=== PATIENT | male | born 1960 | race Caucasian/White ===

== ENCOUNTER 2017-10-09 17:51 | Inpatient (IN) | payer MEDICARE, MEDICAID ==
[~2017-10-09] VITALS: Ht 165.1 cm; Wt 110.9 kg
[~2017-10-09 17:51] MED LIST: AMIT10TA6 PO; ASCO100T4 PO; CALC600T2 PO; DOCU250C14 PO; GABA-529 PO; GUAR205P PO; IBAN2.5T PO; LEVE500T53 PO; LORA10CA PO; OMEP20 PO; RISP1 PO; SENN-175 PO; TAMS0.4C32 GT
[2017-10-09 18:11] LABS: HEMATOCRIT 44.7 % (41-53); HEMOGLOBIN 14.4 g/dL (13.5-17.5); MEAN CORPUSCULAR HEMOGLOBIN 26.1 pg (26.0-34.0); MEAN CORPUSCULAR HGB CONC 32.2 G/dL (31.0-37.0); MEAN CORPUSCULAR VOLUME 81 fL (80-100); PLATELET COUNT (AUTO) 447 K/uL (150-450); RED BLOOD CELL COUNT(AUTO) 5.53 MIL/uL (4.50-5.90); RED CELL DISTRIBUTION WIDTH 14.9 % (11.5-14.5)
[2017-10-09 18:22] LABS: ANION GAP 2 mmol/L (8-16); CALCIUM, TOTAL 8.6 mg/dL (8.8-10.5); CARBON DIOXIDE 34 mmol/L (22-29); CHLORIDE 89 mmol/L (98-107); CREATININE 0.72 mg/dL (0.60-1.30); GLOMERULAR FILTR. RATE CALC > 60 mL/min (>60); POTASSIUM 5.4 mmol/L (3.5-5.1); SODIUM SERUM 125 mmol/L (136-145); UREA NITROGEN, BLOOD 20 mg/dL (7-18)
[2017-10-09 18:24] LABS: PROTHROMBIN TIME 10.7 SEC (9.4-11.6)
[2017-10-09 18:29] LABS: ALANINE AMINOTRANSFERASE 27 U/L (12-78); ALBUMIN 2.7 g/dL (3.4-5.0); ASPARTATE AMINOTRANSFERASE 21 U/L (15-37); BILIRUBIN,TOTAL 0.4 mg/dL (0.1-1.0); CREATINE KINASE, TOTAL 66 U/L (39-308)
[2017-10-09 18:37] LABS: BAND NEUTROPHILS % (MANUAL) 7 % (1-5); LYMPHOCYTES % (MANUAL) 2 % (22-44); RBC MORPHOLOGY COMMENT NORMAL RBC MORPH; TOTAL CELLS COUNTED 100
[2017-10-09 18:38] LABS: B-TYPE NATRIURETIC PEPTIDE 256 pg/mL (0-100)
[2017-10-09] MEDS ORDERED: AZITHROMYCIN 500 MG/NS 250 ML IV ONE (19:45)
[2017-10-09] MEDS ORDERED: 0.9% SODIUM CHLORIDE 10 ML SYRINGE IVP PRN ×2 (19:45→22:30)
[2017-10-09] MEDS ORDERED: ALBUTEROL SULFATE 2.5 MG/0.5 ML NEB SOLUTION NEB ONE (19:45)
[2017-10-09] MEDS ORDERED: ACETAMINOPHEN 325 MG TABLET PO PRN ×2 (19:45→22:30)
[2017-10-09] MEDS ORDERED: SODIUM CHLORIDE 0.9% 1,000 ML IV ONE (19:45)
[2017-10-09] MEDS ORDERED: IPRATROPIUM BROMIDE 0.5 MG/2.5 ML NEB SOLUTION NEB ONE (19:45)
[2017-10-09] MEDS ORDERED: CefTRIAXone 1 GM/DEXTROSE 50 ML IV ONE (19:45)
[2017-10-09 22:13] VITALS: BP 106/65
[2017-10-09] MEDS ORDERED: ONDANSETRON HCL 4 MG/2 ML VIAL IVP PRN (22:30)
[2017-10-09] MEDS ORDERED: MAGNESIUM HYDROXIDE SUSPENSION 30 ML UDCUP PO PRN (22:30)
[2017-10-09] MEDS ORDERED: IPRATROPIUM BROMIDE 0.5 MG/2.5 ML NEB SOLUTION NEB PRN (22:30)
[2017-10-09] MEDS ORDERED: BISACODYL 10 MG RECTAL RECTAL SUPPOSITORY PR PRN (22:30)
[2017-10-09] MEDS ORDERED: ALBUTEROL SULFATE 2.5 MG/0.5 ML NEB SOLUTION NEB PRN (22:30)
[2017-10-09] MEDS ORDERED: FUROSEMIDE 40 MG/4 ML VIAL IVP ONE (22:30)
[2017-10-09 22:48] LABS: ABG A-A DIFF O2 354.1 mmHg (10-20.0); ABG BASE EXCESS 5.2 mmol/L (-2.0-3.0); ABG HCO3 27.9 mmol/L (22.0-26.0); ABG OXYHEMOGLOBIN 96.5 % (94.0-100.0); ABG PCO2 56 mmHg (35-45); ABG PH 7.359 (7.35-7.450); TEMPERATURE, FAHRENHEIT, BG 98.6 FAHREN (96.0-98.6)
[2017-10-09 22:49] LABS: ALLEN TEST, BLOOD GAS Positive
[2017-10-09 22:59] LABS: PROCALCITONIN (PCT) 0.13 ng/mL (<0.50)
[2017-10-10 00:29] VITALS: BP 110/68
[2017-10-10 00:30] LABS: INFLUENZA TYPE B NEGATIVE FOR TYPE B (NEGATIVE)
[2017-10-10] MEDS ORDERED: SODIUM CHLORIDE 0.9% 500 ML IV ONE (01:55)
[2017-10-10] MEDS: PIPERACILLIN/TAZO 3.375 GM/D5W 50 ML IV SCH ×4 (02:03→21:17)
[2017-10-10] MEDS: ALBUTEROL SULFATE 2.5 MG/0.5 ML NEB SOLUTION NEB SCH ×4 (02:13→20:24)
[2017-10-10] MEDS: IPRATROPIUM BROMIDE 0.5 MG/2.5 ML NEB SOLUTION NEB SCH ×4 (02:13→20:24)
[2017-10-10 02:36] LABS: ANION GAP -1 mmol/L (8-16); CALCIUM, TOTAL 8.2 mg/dL (8.8-10.5); CARBON DIOXIDE 37 mmol/L (22-29); CHLORIDE 94 mmol/L (98-107); CREATININE 0.88 mg/dL (0.60-1.30); GLOMERULAR FILTR. RATE CALC > 60 mL/min (>60); SODIUM SERUM 130 mmol/L (136-145); UREA NITROGEN, BLOOD 27 mg/dL (7-18)
[2017-10-10 06:13] VITALS: BP 102/102
[2017-10-10 07:57] LABS: HEMATOCRIT 38.1 % (41-53); HEMOGLOBIN 12.7 g/dL (13.5-17.5); MEAN CORPUSCULAR HEMOGLOBIN 26.7 pg (26.0-34.0); MEAN CORPUSCULAR HGB CONC 33.2 G/dL (31.0-37.0); MEAN CORPUSCULAR VOLUME 80 fL (80-100); PLATELET COUNT (AUTO) 382 K/uL (150-450); RED BLOOD CELL COUNT(AUTO) 4.75 MIL/uL (4.50-5.90); WHITE BLOOD COUNT (AUTO) 16.2 K/uL (4.5-11.0)
[2017-10-10 08:33] LABS: ALANINE AMINOTRANSFERASE 21 U/L (12-78); ALBUMIN 2.2 g/dL (3.4-5.0); ANION GAP 2 mmol/L (8-16); ASPARTATE AMINOTRANSFERASE 26 U/L (15-37); BILIRUBIN,TOTAL 0.3 mg/dL (0.1-1.0); CALCIUM, TOTAL 8.2 mg/dL (8.8-10.5); CARBON DIOXIDE 33 mmol/L (22-29); CHLORIDE 93 mmol/L (98-107); CHOL/HDL RATIO 1.7 (4.2-7.3); CREATININE 0.73 mg/dL (0.60-1.30); GLOMERULAR FILTR. RATE CALC > 60 mL/min (>60); POTASSIUM 5.5 mmol/L (3.5-5.1); SODIUM SERUM 128 mmol/L (136-145); THYROID STIMULATING HORMONE 1.74 uIU/mL (0.36-3.74); TOTAL PROTEIN, SERUM 6.1 g/dL (6.4-8.2); UREA NITROGEN, BLOOD 28 mg/dL (7-18)
[2017-10-10 08:38] VITALS: BP 102/69
[2017-10-10] MEDS ORDERED: TAMSULOSIN HCL 0.4 MG CAPSULE GT SCH (09:00)
[2017-10-10] MEDS: PANTOPRAZOLE SODIUM 40 MG/VIAL IVP SCH (09:03)
[2017-10-10] MEDS: SENNA 187 MG TABLET PO SCH ×2 (09:03→21:00)
[2017-10-10] MEDS: GABAPENTIN 100 MG CAPSULE PO SCH ×3 (09:03→21:00)
[2017-10-10] MEDS: CALCIUM CARBONATE 500 MG CHEWABLE TABLET PO SCH ×2 (09:05→21:00)
[2017-10-10] MEDS: HEPARIN SODIUM,PORCINE 5,000 UNITS/ML VIAL SQ SCH ×2 (09:05→21:16)
[2017-10-10] MEDS: LevETIRAcetam 500 MG TABLET PO SCH ×2 (09:08→21:00)
[2017-10-10] MEDS: DOCUSATE SODIUM 250 MG CAPSULE PO SCH ×2 (09:09→21:00)
[2017-10-10 09:29] LABS: LYMPHOCYTES % (MANUAL) 6 % (22-44); RBC MORPHOLOGY COMMENT NORMAL RBC MORPH; TOTAL CELLS COUNTED 100
[2017-10-10 11:46] VITALS: BP 98/69
[2017-10-10] MEDS ORDERED: SODIUM POLYSTYRENE SULFONATE 15 GM/60 ML SUSPENSION BOTTLE PO ONE (12:15)
[2017-10-10] MEDS: ASPIRIN 81 MG EC TABLET PO SCH (17:45)
[2017-10-10 17:52] VITALS: BP 120/60
[2017-10-10 19:30] LABS: ANION GAP 4 mmol/L (8-16); CALCIUM, TOTAL 8.3 mg/dL (8.8-10.5); CARBON DIOXIDE 36 mmol/L (22-29); CHLORIDE 95 mmol/L (98-107); CREATININE 0.68 mg/dL (0.60-1.30); GLOMERULAR FILTR. RATE CALC > 60 mL/min (>60); POTASSIUM 4.4 mmol/L (3.5-5.1); SODIUM SERUM 135 mmol/L (136-145); UREA NITROGEN, BLOOD 29 mg/dL (7-18)
[2017-10-10 19:41] VITALS: BP 119/67
[2017-10-10] MEDS: RisperiDONE 1 MG TABLET PO SCH (21:00)
[2017-10-10] MEDS: PRAVASTATIN SODIUM 20 MG TABLET PO SCH (21:00)
[2017-10-10] MEDS: NITROGLYCERIN 2% (1 GM=INCH) PACKET TP SCH ×2 (21:17→23:37)
[2017-10-10] MEDS: FUROSEMIDE 40 MG/4 ML VIAL IVP SCH (21:17)
[2017-10-10] MEDS ORDERED: SODIUM CHLORIDE 0.9% 250 ML IV ONE (21:20)
[2017-10-10] MEDS: AZITHROMYCIN 500 MG/NS 250 ML IV SCH (22:56)
[2017-10-11 00:05] VITALS: BP 108/57
[2017-10-11] MEDS: PIPERACILLIN/TAZO 3.375 GM/D5W 50 ML IV SCH ×4 (01:18→20:39)
[2017-10-11] MEDS: IPRATROPIUM BROMIDE 0.5 MG/2.5 ML NEB SOLUTION NEB SCH ×4 (02:47→20:30)
[2017-10-11] MEDS: ALBUTEROL SULFATE 2.5 MG/0.5 ML NEB SOLUTION NEB SCH ×4 (02:47→20:30)
[2017-10-11 05:21] VITALS: BP 100/52
[2017-10-11 05:44] LABS: BASOPHILS % (AUTO) 0.2 % (0.0-2.0); EOSINOPHILS % (AUTO) 3.4 % (1.0-6.0); HEMATOCRIT 37.1 % (41-53); LYMPHOCYTES # (AUTO) 0.9 K/uL (1.0-4.8); LYMPHOCYTES % (AUTO) 6.8 % (22.0-44.0); MEAN CORPUSCULAR HEMOGLOBIN 26.3 pg (26.0-34.0); MEAN CORPUSCULAR HGB CONC 32.2 G/dL (31.0-37.0); MEAN CORPUSCULAR VOLUME 82 fL (80-100); MONOCYTES # (AUTO) 1.4 K/uL (0.1-1.0); MONOCYTES % (AUTO) 10.7 % (2.0-9.0); NEUTROPHILS # (AUTO) 10.4 K/uL (1.8-7.7); NEUTROPHILS % (AUTO) 78.9 % (40.0-70.0); PLATELET COUNT (AUTO) 344 K/uL (150-450); RED BLOOD CELL COUNT(AUTO) 4.54 MIL/uL (4.50-5.90); RED CELL DISTRIBUTION WIDTH 15.1 % (11.5-14.5); WHITE BLOOD COUNT (AUTO) 13.1 K/uL (4.5-11.0)
[2017-10-11 06:02] LABS: ALANINE AMINOTRANSFERASE 23 U/L (12-78); ALBUMIN 2.3 g/dL (3.4-5.0); ANION GAP 0 mmol/L (8-16); ASPARTATE AMINOTRANSFERASE 16 U/L (15-37); BILIRUBIN,TOTAL 0.3 mg/dL (0.1-1.0); CALCIUM, TOTAL 8.1 mg/dL (8.8-10.5); CARBON DIOXIDE 37 mmol/L (22-29); CHLORIDE 96 mmol/L (98-107); CREATININE 0.64 mg/dL (0.60-1.30); GLOMERULAR FILTR. RATE CALC > 60 mL/min (>60); POTASSIUM 4.3 mmol/L (3.5-5.1); SODIUM SERUM 133 mmol/L (136-145); TOTAL PROTEIN, SERUM 6.3 g/dL (6.4-8.2); UREA NITROGEN, BLOOD 30 mg/dL (7-18)
[2017-10-11 07:13] VITALS: BP 108/60
[2017-10-11] MEDS: PANTOPRAZOLE SODIUM 40 MG/VIAL IVP SCH (08:58)
[2017-10-11] MEDS: FUROSEMIDE 40 MG/4 ML VIAL IVP SCH ×2 (08:58→20:39)
[2017-10-11] MEDS: GABAPENTIN 100 MG CAPSULE PO SCH ×3 (08:58→20:38)
[2017-10-11] MEDS: NITROGLYCERIN 2% (1 GM=INCH) PACKET TP SCH ×2 (08:58→16:19)
[2017-10-11] MEDS: LevETIRAcetam 500 MG TABLET PO SCH ×2 (08:58→20:38)
[2017-10-11] MEDS: ASPIRIN 81 MG EC TABLET PO SCH (08:58)
[2017-10-11] MEDS: DOCUSATE SODIUM 250 MG CAPSULE PO SCH ×2 (08:58→20:38)
[2017-10-11] MEDS: SENNA 187 MG TABLET PO SCH ×2 (08:59→20:38)
[2017-10-11] MEDS: HEPARIN SODIUM,PORCINE 5,000 UNITS/ML VIAL SQ SCH ×2 (08:59→20:39)
[2017-10-11] MEDS: ASCORBIC ACID 500 MG TABLET PO SCH (08:59)
[2017-10-11] MEDS: CALCIUM CARBONATE 500 MG CHEWABLE TABLET PO SCH ×2 (08:59→20:47)
[2017-10-11 09:45] LABS: ANION GAP 1 mmol/L (8-16); CALCIUM, TOTAL 8.2 mg/dL (8.8-10.5); CARBON DIOXIDE 38 mmol/L (22-29); CHLORIDE 97 mmol/L (98-107); GLOMERULAR FILTR. RATE CALC > 60 mL/min (>60); POTASSIUM 4.3 mmol/L (3.5-5.1); SODIUM SERUM 136 mmol/L (136-145); UREA NITROGEN, BLOOD 26 mg/dL (7-18)
[2017-10-11 11:16] VITALS: BP 101/56
[2017-10-11 15:57] VITALS: BP 121/66
[2017-10-11] MEDS: RisperiDONE 1 MG TABLET PO SCH (20:38)
[2017-10-11] MEDS: PRAVASTATIN SODIUM 20 MG TABLET PO SCH (20:38)
[2017-10-11] MEDS: AZITHROMYCIN 500 MG/NS 250 ML IV SCH (20:46)
[2017-10-11 21:02] VITALS: BP 122/76
[2017-10-12 00:05] VITALS: BP 118/71
[2017-10-12] MEDS: PIPERACILLIN/TAZO 3.375 GM/D5W 50 ML IV SCH ×3 (01:31→13:45)
[2017-10-12] MEDS: NITROGLYCERIN 2% (1 GM=INCH) PACKET TP SCH ×3 (01:31→16:18)
[2017-10-12] MEDS: IPRATROPIUM BROMIDE 0.5 MG/2.5 ML NEB SOLUTION NEB SCH ×3 (02:10→14:27)
[2017-10-12] MEDS: ALBUTEROL SULFATE 2.5 MG/0.5 ML NEB SOLUTION NEB SCH ×3 (02:10→14:27)
[2017-10-12 04:28] VITALS: BP 104/61
[2017-10-12 07:01] LABS: BASOPHILS % (AUTO) 0.1 % (0.0-2.0); EOSINOPHILS % (AUTO) 7.1 % (1.0-6.0); HEMATOCRIT 36.7 % (41-53); HEMOGLOBIN 11.7 g/dL (13.5-17.5); LYMPHOCYTES # (AUTO) 0.9 K/uL (1.0-4.8); LYMPHOCYTES % (AUTO) 8.6 % (22.0-44.0); MEAN CORPUSCULAR HEMOGLOBIN 26.3 pg (26.0-34.0); MEAN CORPUSCULAR HGB CONC 31.8 G/dL (31.0-37.0); MEAN CORPUSCULAR VOLUME 83 fL (80-100); MONOCYTES # (AUTO) 1.1 K/uL (0.1-1.0); NEUTROPHILS # (AUTO) 8.1 K/uL (1.8-7.7); NEUTROPHILS % (AUTO) 74.2 % (40.0-70.0); PLATELET COUNT (AUTO) 312 K/uL (150-450); RED BLOOD CELL COUNT(AUTO) 4.43 MIL/uL (4.50-5.90); RED CELL DISTRIBUTION WIDTH 15.7 % (11.5-14.5)
[2017-10-12 08:00] LABS: ALANINE AMINOTRANSFERASE 22 U/L (12-78); ALBUMIN 2.2 g/dL (3.4-5.0); ANION GAP 0 mmol/L (8-16); ASPARTATE AMINOTRANSFERASE 17 U/L (15-37); BILIRUBIN,TOTAL 0.3 mg/dL (0.1-1.0); CALCIUM, TOTAL 8.3 mg/dL (8.8-10.5); CHLORIDE 97 mmol/L (98-107); CREATININE 0.52 mg/dL (0.60-1.30); GLOMERULAR FILTR. RATE CALC > 60 mL/min (>60); SODIUM SERUM 138 mmol/L (136-145); TOTAL PROTEIN, SERUM 6.2 g/dL (6.4-8.2); UREA NITROGEN, BLOOD 23 mg/dL (7-18)
[2017-10-12 08:06] LABS: CARBON DIOXIDE 41 mmol/L (22-29)
[2017-10-12 08:24] VITALS: BP 115/69
[2017-10-12] MEDS: PANTOPRAZOLE SODIUM 40 MG/VIAL IVP SCH (08:34)
[2017-10-12] MEDS: FUROSEMIDE 40 MG/4 ML VIAL IVP SCH (08:34)
[2017-10-12] MEDS: DOCUSATE SODIUM 250 MG CAPSULE PO SCH (08:34)
[2017-10-12] MEDS: LevETIRAcetam 500 MG TABLET PO SCH (08:35)
[2017-10-12] MEDS: CALCIUM CARBONATE 500 MG CHEWABLE TABLET PO SCH (08:35)
[2017-10-12] MEDS: GABAPENTIN 100 MG CAPSULE PO SCH ×2 (08:35→16:17)
[2017-10-12] MEDS: SENNA 187 MG TABLET PO SCH (08:35)
[2017-10-12] MEDS: ASCORBIC ACID 500 MG TABLET PO SCH (08:35)
[2017-10-12] MEDS: ASPIRIN 81 MG EC TABLET PO SCH (08:35)
[2017-10-12] MEDS: HEPARIN SODIUM,PORCINE 5,000 UNITS/ML VIAL SQ SCH (08:55)
[2017-10-12 11:35] VITALS: BP 102/54
[2017-10-12 14:59] VITALS: BP 127/66
[2017-10-12] MEDS ORDERED: OXYGEN THERAPY IH SCH (20:00)
[2017-10-14 22:06] LABS: MYCOPLASMA AB IGG <100 U/mL (0-99)
== END 2017-10-12 18:40 | DRG 871 ==
LOC: EMS 17:53 → 4E 20:46 → 5S 10-10 18:00
PROVIDERS: ADMIT Internal Medicine; ATTEND Internal Medicine
PROC: 5A09357 Assistance with Respiratory Ventilation, Less than 24 Consecutive Hours, Continuous Positive Airway Pressure (ICD-10-PCS; principal; 2017-10-11)
DX: A41.9 Sepsis, unspecified organism (principal); J96.02 Acute respiratory failure with hypercapnia; I50.31 Acute diastolic (congestive) heart failure; J90 Pleural effusion, not elsewhere classified; J18.9 Pneumonia, unspecified organism; I27.20 Pulmonary hypertension, unspecified; Q87.1 Congenital malformation syndromes predominantly associated with short stature; E87.1 Hypo-osmolality and hyponatremia; J44.0 Chronic obstructive pulmonary disease with (acute) lower respiratory infection; K21.9 Gastro-esophageal reflux disease without esophagitis; G40.909 Epilepsy, unspecified, not intractable, without status epilepticus; K59.00 Constipation, unspecified; N40.0 Benign prostatic hyperplasia without lower urinary tract symptoms; F32.9 Major depressive disorder, single episode, unspecified; G43.909 Migraine, unspecified, not intractable, without status migrainosus; G62.9 Polyneuropathy, unspecified; F17.210 Nicotine dependence, cigarettes, uncomplicated; J31.0 Chronic rhinitis; M81.0 Age-related osteoporosis without current pathological fracture; E87.5 Hyperkalemia; Z79.899 Other long term (current) drug therapy; Z86.73 Personal history of transient ischemic attack (TIA), and cerebral infarction without residual deficits
CPT/HCPCS: 51702; 71250; 82805; 83605; 83735; 83930; 84100; 84145; 84439; 84443; 87040; 87081; 87798; 87804; 92610; 93005; 93306; 93970; 94640; 94660; 96365; 96366; 96368; 99285; C9113; J0456; J0696; J1644; J1940; J2543; J7030; J7040; J7050

== ENCOUNTER 2017-10-14 11:07 | Inpatient (IN) | payer MEDICARE, MEDICAID ==
[~2017-10-14] VITALS: Ht 165.1 cm; Wt 115.7 kg
[2017-10-14] MEDS ORDERED: IPRNEB IH (11:21)
[2017-10-14] MEDS ORDERED: FURO40 PO (11:21)
[2017-10-14] MEDS ORDERED: AUD NEB (11:21)
[2017-10-14] MEDS ORDERED: PANT40TA25 PO (11:21)
[2017-10-14] MEDS ORDERED: [UNRECOGNIZED DRUG - CODE] SQ (11:21)
[2017-10-14] MEDS ORDERED: ASPI-1182 PO (11:21)
[2017-10-14] MEDS ORDERED: IOVERSOL 350 MG/ML 150 ML VIAL ONE (11:49)
[2017-10-14 12:35] LABS: BASOPHILS % (AUTO) 0.7 % (0.0-2.0); EOSINOPHILS % (AUTO) 0.2 % (1.0-6.0); HEMATOCRIT 40.3 % (41-53); HEMOGLOBIN 12.7 g/dL (13.5-17.5); LYMPHOCYTES # (AUTO) 1.2 K/uL (1.0-4.8); LYMPHOCYTES % (AUTO) 6.3 % (22.0-44.0); MEAN CORPUSCULAR HGB CONC 31.5 G/dL (31.0-37.0); MEAN CORPUSCULAR VOLUME 83 fL (80-100); MONOCYTES # (AUTO) 1.5 K/uL (0.1-1.0); MONOCYTES % (AUTO) 7.8 % (2.0-9.0); PLATELET COUNT (AUTO) 355 K/uL (150-450); RED BLOOD CELL COUNT(AUTO) 4.87 MIL/uL (4.50-5.90); RED CELL DISTRIBUTION WIDTH 15.9 % (11.5-14.5)
[2017-10-14 12:50] LABS: B-TYPE NATRIURETIC PEPTIDE 1310 pg/mL (0-100)
[2017-10-14 12:52] LABS: ALANINE AMINOTRANSFERASE 259 U/L (12-78); ALBUMIN 2.4 g/dL (3.4-5.0); ALKALINE PHOSPHATASE 130 U/L (46-116); ANION GAP -2 mmol/L (8-16); ASPARTATE AMINOTRANSFERASE 244 U/L (15-37); BILIRUBIN,TOTAL 0.2 mg/dL (0.1-1.0); CALCIUM, TOTAL 8.7 mg/dL (8.8-10.5); CHLORIDE 97 mmol/L (98-107); CREATININE 0.69 mg/dL (0.60-1.30); GLOMERULAR FILTR. RATE CALC > 60 mL/min (>60); GLUCOSE,RANDOM 118 mg/dL (70-110); POTASSIUM 4.8 mmol/L (3.5-5.1); SODIUM SERUM 136 mmol/L (136-145); TOTAL PROTEIN, SERUM 6.6 g/dL (6.4-8.2); UREA NITROGEN, BLOOD 27 mg/dL (7-18)
[2017-10-14 12:56] LABS: LACTIC ACID 1.1 mmol/L (0.4-2.0)
[2017-10-14 13:02] LABS: CARBON DIOXIDE 41 mmol/L (22-29)
[2017-10-14] MEDS ORDERED: CEFEPIME HCL 1 GM in DEXTROSE 5%-WATER 50 ML IV ONE (13:15)
[2017-10-14] MEDS ORDERED: SODIUM CHLORIDE 0.9% 1,000 ML IV ONE (13:15)
[2017-10-14] MEDS ORDERED: VANCOMYCIN HCL 1.5 GM in DEXTROSE 5%-WATER 250 ML IV ONE ×2 (13:15→23:00)
[2017-10-14 14:41] VITALS: BP 117/57
[2017-10-14 20:13] VITALS: BP 120/82
[2017-10-14] MEDS ORDERED: HEPA500018 SQ (20:20)
[2017-10-14] MEDS ORDERED: ALBUMIN HUMAN 25%-25GM/100ML 100 ML IV ONE (20:30)
[2017-10-14] MEDS ORDERED: ALBUTEROL SULFATE 2.5 MG/0.5 ML NEB SOLUTION NEB PRN (20:30)
[2017-10-14] MEDS ORDERED: *CLINICAL-CEFEPIME DOSING CLINICAL ONE (20:30)
[2017-10-14] MEDS ORDERED: MAGNESIUM HYDROXIDE SUSPENSION 30 ML UDCUP PO PRN (20:45)
[2017-10-14] MEDS ORDERED: 0.9% SODIUM CHLORIDE 10 ML SYRINGE IVP PRN (20:45)
[2017-10-14] MEDS ORDERED: ONDANSETRON HCL 4 MG/2 ML VIAL IVP PRN (20:45)
[2017-10-14] MEDS ORDERED: OxyCODONE HCL/ACETAMINOPHEN 5-325 MG TABLET PO PRN ×2 (20:45)
[2017-10-14] MEDS ORDERED: ACETAMINOPHEN 325 MG TABLET PO PRN (20:45)
[2017-10-14] MEDS: CALCIUM CARBONATE 648 MG TABLET PO SCH (22:08)
[2017-10-14] MEDS: ASCORBIC ACID 500 MG TABLET PO SCH (22:08)
[2017-10-14] MEDS: RisperiDONE 1 MG TABLET PO SCH (22:08)
[2017-10-14] MEDS: ASPIRIN 81 MG EC TABLET PO SCH (22:08)
[2017-10-14] MEDS: SENNA 187 MG TABLET PO SCH (22:08)
[2017-10-14] MEDS: LevETIRAcetam 500 MG TABLET PO SCH (22:08)
[2017-10-14] MEDS: GABAPENTIN 100 MG CAPSULE PO SCH (22:08)
[2017-10-14] MEDS: HEPARIN SODIUM,PORCINE 5,000 UNITS/ML VIAL SQ SCH (22:09)
[2017-10-14] MEDS: PANTOPRAZOLE SODIUM 40 MG/VIAL IVP SCH (22:09)
[2017-10-14] MEDS: DOCUSATE SODIUM 100 MG CAPSULE PO SCH (22:09)
[2017-10-14] MEDS: NYSTATIN 15 GM POWDER BOTTLE TP SCH (22:11)
[2017-10-14] MEDS: FUROSEMIDE 40 MG/4 ML VIAL IVP SCH (22:11)
[2017-10-14 23:23] VITALS: BP 113/80
[2017-10-15] MEDS: CEFEPIME HCL 2 GM in DEXTROSE 5%-WATER 50 ML IV SCH ×2 (02:21→15:05)
[2017-10-15] MEDS: IPRATROPIUM BROMIDE 0.5 MG/2.5 ML NEB SOLUTION NEB SCH ×4 (02:54→19:40)
[2017-10-15] MEDS: ALBUTEROL SULFATE 2.5 MG/0.5 ML NEB SOLUTION NEB SCH ×4 (02:54→19:40)
[2017-10-15 05:00] VITALS: BP 133/92
[2017-10-15] MEDS: VANCOMYCIN HCL 1.25 GM in DEXTROSE 5%-WATER 250 ML IV SCH ×4 (05:38→23:24)
[2017-10-15 07:03] LABS: BASOPHILS # (AUTO) 0.02 K/uL (0.00-0.20); BASOPHILS % (AUTO) 0.1 % (0.0-2.0); EOSINOPHILS # (AUTO) 0.54 K/uL (0.00-0.70); EOSINOPHILS % (AUTO) 2.83 % (1.0-6.0); HEMATOCRIT 38.5 % (41-53); HEMOGLOBIN 11.7 g/dL (13.5-17.5); LYMPHOCYTES # (AUTO) 0.9 K/uL (1.0-4.8); LYMPHOCYTES % (AUTO) 4.6 % (22.0-44.0); MEAN CORPUSCULAR HEMOGLOBIN 25.9 pg (26.0-34.0); MEAN CORPUSCULAR HGB CONC 30.4 G/dL (31.0-37.0); MEAN CORPUSCULAR VOLUME 85 fL (80-100); MONOCYTES # (AUTO) 1.3 K/uL (0.1-1.0); MONOCYTES % (AUTO) 6.9 % (2.0-9.0); NEUTROPHILS # (AUTO) 16.3 K/uL (1.8-7.7); PLATELET COUNT (AUTO) 269 K/uL (150-450); RED BLOOD CELL COUNT(AUTO) 4.52 MIL/uL (4.50-5.90); RED CELL DISTRIBUTION WIDTH 15.9 % (11.5-14.5)
[2017-10-15 07:25] LABS: NEUTROPHILS % (AUTO) 85.6 % (40.0-70.0)
[2017-10-15 07:29] LABS: ANION GAP -3 mmol/L (8-16); CALCIUM, TOTAL 8.6 mg/dL (8.8-10.5); CHLORIDE 95 mmol/L (98-107); GLOMERULAR FILTR. RATE CALC > 60 mL/min (>60); GLUCOSE,RANDOM 155 mg/dL (70-110); POTASSIUM 4.3 mmol/L (3.5-5.1); SODIUM SERUM 135 mmol/L (136-145); UREA NITROGEN, BLOOD 20 mg/dL (7-18)
[2017-10-15 07:43] LABS: CARBON DIOXIDE 43 mmol/L (22-29)
[2017-10-15 07:47] VITALS: BP 116/77
[2017-10-15] MEDS: FUROSEMIDE 40 MG/4 ML VIAL IVP SCH ×2 (09:03→21:46)
[2017-10-15] MEDS: DOCUSATE SODIUM 100 MG CAPSULE PO SCH ×2 (09:05→21:45)
[2017-10-15] MEDS: PANTOPRAZOLE SODIUM 40 MG/VIAL IVP SCH (09:05)
[2017-10-15] MEDS: ASPIRIN 81 MG EC TABLET PO SCH (09:06)
[2017-10-15] MEDS: LevETIRAcetam 500 MG TABLET PO SCH ×2 (09:06→21:45)
[2017-10-15] MEDS: CALCIUM CARBONATE 648 MG TABLET PO SCH ×2 (09:06→21:45)
[2017-10-15] MEDS: HEPARIN SODIUM,PORCINE 5,000 UNITS/ML VIAL SQ SCH ×2 (09:07→21:46)
[2017-10-15] MEDS: GABAPENTIN 100 MG CAPSULE PO SCH ×3 (09:07→21:45)
[2017-10-15] MEDS: NYSTATIN 15 GM POWDER BOTTLE TP SCH ×2 (09:07→21:46)
[2017-10-15] MEDS: ASCORBIC ACID 500 MG TABLET PO SCH (09:07)
[2017-10-15] MEDS: SENNA 187 MG TABLET PO SCH ×2 (09:08→21:45)
[2017-10-15 11:52] VITALS: BP 115/73
[2017-10-15 12:22] LABS: ABG A-A DIFF O2 53.3 mmHg (10-20.0); ABG BASE EXCESS 18.8 mmol/L (-2.0-3.0); ABG CARBOXYHEMOGLOBIN 1.7 % (0.0-1.5); ABG HCO3 39.1 mmol/L (22.0-26.0); ABG METHEMOGLOBIN 0.3 % (0.0-1.5); ABG OXYGEN CONTENT 15.9 mL/dL (15.0-23.0); ABG OXYGEN SATURATION 96.2 % (95.0-98.0); ABG OXYHEMOGLOBIN 94.3 % (94.0-100.0); ABG PH 7.343 (7.35-7.450); ABG TOTAL HEMOGLOBIN 11.9 G/dL (12.0-18.0); PO2, ARTERIAL BG 99.3 mmHg (84.0-92.0); SOURCE, BLOOD GAS ARTERIAL
[2017-10-15 12:24] LABS: ABG PCO2 84 mmHg (35-45)
[2017-10-15 12:25] LABS: INSPIRATORY TIME, BG 1 SEC; O2 DEVICE,BLOOD GAS BIPAP (ROOM AIR); SITE, BLOOD GAS LFT RADIAL; SPONTANEOUS VT, BG 421 ml
[2017-10-15] MEDS ORDERED: ALBUTEROL SULFATE 2.5 MG/0.5 ML NEB SOLUTION NEB PRN (13:15)
[2017-10-15] MEDS ORDERED: IPRATROPIUM BROMIDE 0.5 MG/2.5 ML NEB SOLUTION NEB PRN (13:15)
[2017-10-15 15:49] VITALS: BP 116/66
[2017-10-15] MEDS: AcetaZOLAMIDE SODIUM 500 MG VIAL IVP SCH (18:17)
[2017-10-15] MEDS: NICOTINE 14 MG/24 HOUR PATCH TD SCH (18:17)
[2017-10-15] MEDS: MethylPREDNISolone SOD SUCC 125 MG/2 ML VIAL IVP SCH ×2 (18:21→23:24)
[2017-10-15 19:52] VITALS: BP 119/87
[2017-10-15] MEDS: RisperiDONE 1 MG TABLET PO SCH (21:45)
[2017-10-16] VITALS (13 sets, daily range): BP systolic 98–151; BP diastolic 54–96
[2017-10-16] MEDS: ALBUTEROL SULFATE 2.5 MG/0.5 ML NEB SOLUTION NEB SCH ×2 (01:46→08:48)
[2017-10-16] MEDS: IPRATROPIUM BROMIDE 0.5 MG/2.5 ML NEB SOLUTION NEB SCH ×4 (01:48→20:26)
[2017-10-16] MEDS: CEFEPIME HCL 2 GM in DEXTROSE 5%-WATER 50 ML IV SCH ×2 (03:11→16:27)
[2017-10-16] MEDS: MethylPREDNISolone SOD SUCC 125 MG/2 ML VIAL IVP SCH ×3 (04:50→18:33)
[2017-10-16] MEDS: VANCOMYCIN HCL 1.25 GM in DEXTROSE 5%-WATER 250 ML IV SCH ×3 (04:50→18:34)
[2017-10-16] MEDS: FUROSEMIDE 40 MG/4 ML VIAL IVP SCH ×2 (07:58→20:19)
[2017-10-16] MEDS: LevETIRAcetam 500 MG TABLET PO SCH ×2 (07:59→20:19)
[2017-10-16] MEDS: DOCUSATE SODIUM 100 MG CAPSULE PO SCH ×2 (07:59→20:19)
[2017-10-16] MEDS: PANTOPRAZOLE SODIUM 40 MG/VIAL IVP SCH (07:59)
[2017-10-16] MEDS: ASPIRIN 81 MG EC TABLET PO SCH (07:59)
[2017-10-16] MEDS: AcetaZOLAMIDE SODIUM 500 MG VIAL IVP SCH (07:59)
[2017-10-16] MEDS: NICOTINE 14 MG/24 HOUR PATCH TD SCH (08:00)
[2017-10-16] MEDS: HEPARIN SODIUM,PORCINE 5,000 UNITS/ML VIAL SQ SCH ×2 (08:00→20:20)
[2017-10-16] MEDS ORDERED: DIGOXIN 250 MCG/ML 2 ML AMP IVP ONE (08:00)
[2017-10-16] MEDS: SENNA 187 MG TABLET PO SCH ×2 (08:00→20:20)
[2017-10-16] MEDS: NYSTATIN 15 GM POWDER BOTTLE TP SCH ×2 (08:01→20:31)
[2017-10-16] MEDS: ASCORBIC ACID 500 MG TABLET PO SCH (08:01)
[2017-10-16] MEDS: CALCIUM CARBONATE 648 MG TABLET PO SCH ×2 (08:01→20:19)
[2017-10-16] MEDS: GABAPENTIN 100 MG CAPSULE PO SCH ×3 (08:01→20:19)
[2017-10-16] MEDS ORDERED: DILTIAZEM HCL 125 MG in DEXTROSE 5%-WATER 100 ML IV SCH (08:55)
[2017-10-16] MEDS ORDERED: DILTIAZEM HCL 5 MG/ML 5 ML VIAL IVP ONE (09:00)
[2017-10-16] MEDS: METOPROLOL TARTRATE 25 MG TABLET PO SCH ×2 (09:15→18:33)
[2017-10-16] MEDS ORDERED: AMIODARONE HCL 50 MG in DEXTROSE 5%-WATER 97 ML IV ONE (09:20)
[2017-10-16 09:29] LABS: EOSINOPHILS % (AUTO) 0 % (1.0-6.0); HEMATOCRIT 41.3 % (41-53); HEMOGLOBIN 12.9 g/dL (13.5-17.5); LYMPHOCYTES # (AUTO) 0.3 K/uL (1.0-4.8); LYMPHOCYTES % (AUTO) 1.9 % (22.0-44.0); MEAN CORPUSCULAR HEMOGLOBIN 26.2 pg (26.0-34.0); MEAN CORPUSCULAR HGB CONC 31.3 G/dL (31.0-37.0); MEAN CORPUSCULAR VOLUME 84 fL (80-100); MONOCYTES # (AUTO) 0.1 K/uL (0.1-1.0); NEUTROPHILS # (AUTO) 14.2 K/uL (1.8-7.7); PLATELET COUNT (AUTO) 291 K/uL (150-450); RED BLOOD CELL COUNT(AUTO) 4.94 MIL/uL (4.50-5.90); RED CELL DISTRIBUTION WIDTH 15.5 % (11.5-14.5)
[2017-10-16] MEDS ORDERED: AMIODARONE HCL 360 MG in DEXTROSE 5%-WATER 242.8 ML IV ONE (09:30)
[2017-10-16 09:31] LABS: NEUTROPHILS % (AUTO) 97.1 % (40.0-70.0)
[2017-10-16 10:02] LABS: ANION GAP -1 mmol/L (8-16); CALCIUM, TOTAL 8.8 mg/dL (8.8-10.5); CHLORIDE 94 mmol/L (98-107); CREATININE 0.58 mg/dL (0.60-1.30); GLOMERULAR FILTR. RATE CALC > 60 mL/min (>60); GLUCOSE,RANDOM 160 mg/dL (70-110); POTASSIUM 3.9 mmol/L (3.5-5.1); SODIUM SERUM 135 mmol/L (136-145); THYROID STIMULATING HORMONE 0.59 uIU/mL (0.36-3.74); UREA NITROGEN, BLOOD 16 mg/dL (7-18); VANCOMYCIN,RANDOM 30.4 mcg/mL (25.0-50.0)
[2017-10-16 10:43] LABS: CARBON DIOXIDE 42 mmol/L (22-29)
[2017-10-16] MEDS ORDERED: AMIODARONE HCL 540 MG in DEXTROSE 5%-WATER 239.2 ML IV ONE (15:30)
[2017-10-16] MEDS: NITROGLYCERIN 2% (1 GM=INCH) PACKET TP SCH (16:27)
[2017-10-16] MEDS: RisperiDONE 1 MG TABLET PO SCH (20:19)
[2017-10-17 00:56] VITALS: BP 104/50
[2017-10-17] MEDS: VANCOMYCIN HCL 1.25 GM in DEXTROSE 5%-WATER 250 ML IV SCH ×5 (01:07→23:52)
[2017-10-17] MEDS: MethylPREDNISolone SOD SUCC 125 MG/2 ML VIAL IVP SCH ×5 (01:07→23:52)
[2017-10-17] MEDS: CEFEPIME HCL 2 GM in DEXTROSE 5%-WATER 50 ML IV SCH ×2 (01:42→16:35)
[2017-10-17] MEDS: IPRATROPIUM BROMIDE 0.5 MG/2.5 ML NEB SOLUTION NEB SCH ×4 (02:56→19:30)
[2017-10-17 04:42] VITALS: BP 140/85
[2017-10-17 07:29] VITALS: BP 133/87
[2017-10-17] MEDS: SENNA 187 MG TABLET PO SCH ×2 (09:00→21:54)
[2017-10-17] MEDS: DOCUSATE SODIUM 100 MG CAPSULE PO SCH ×2 (09:00→21:54)
[2017-10-17] MEDS ORDERED: DiphenhydrAMINE HCL 25 MG CAPSULE PO PRN (09:15)
[2017-10-17] MEDS ORDERED: AMIODARONE HCL 750 MG in DEXTROSE 5%-WATER 485 ML IV SCH (09:30)
[2017-10-17] MEDS: ASPIRIN 81 MG EC TABLET PO SCH (10:31)
[2017-10-17] MEDS: GABAPENTIN 100 MG CAPSULE PO SCH ×3 (10:31→21:54)
[2017-10-17] MEDS: LevETIRAcetam 500 MG TABLET PO SCH ×2 (10:31→21:54)
[2017-10-17] MEDS: ATORVASTATIN CALCIUM 20 MG TABLET PO SCH (10:31)
[2017-10-17] MEDS: METOPROLOL TARTRATE 25 MG TABLET PO SCH ×2 (10:31→21:54)
[2017-10-17] MEDS: CALCIUM CARBONATE 648 MG TABLET PO SCH ×2 (10:31→21:54)
[2017-10-17] MEDS: HEPARIN SODIUM,PORCINE 5,000 UNITS/ML VIAL SQ SCH ×2 (10:33→21:55)
[2017-10-17] MEDS: AcetaZOLAMIDE SODIUM 500 MG VIAL IVP SCH (10:33)
[2017-10-17] MEDS: NITROGLYCERIN 2% (1 GM=INCH) PACKET TP SCH ×4 (10:33→23:52)
[2017-10-17] MEDS: ASCORBIC ACID 500 MG TABLET PO SCH (10:33)
[2017-10-17] MEDS: FUROSEMIDE 40 MG/4 ML VIAL IVP SCH ×2 (10:33→21:55)
[2017-10-17 10:34] VITALS: BP 124/79
[2017-10-17] MEDS: PANTOPRAZOLE SODIUM 40 MG/VIAL IVP SCH (10:34)
[2017-10-17] MEDS: NYSTATIN 15 GM POWDER BOTTLE TP SCH ×2 (10:34→21:57)
[2017-10-17 13:40] LABS: BASOPHILS % (AUTO) 1.5 % (0.0-2.0); EOSINOPHILS % (AUTO) 0.1 % (1.0-6.0); HEMATOCRIT 38.4 % (41-53); HEMOGLOBIN 12.3 g/dL (13.5-17.5); LYMPHOCYTES # (AUTO) 0.3 K/uL (1.0-4.8); LYMPHOCYTES % (AUTO) 2.5 % (22.0-44.0); MEAN CORPUSCULAR HEMOGLOBIN 26.5 pg (26.0-34.0); MEAN CORPUSCULAR VOLUME 83 fL (80-100); MONOCYTES # (AUTO) 0.7 K/uL (0.1-1.0); NEUTROPHILS # (AUTO) 11.8 K/uL (1.8-7.7); PLATELET COUNT (AUTO) 307 K/uL (150-450); RED BLOOD CELL COUNT(AUTO) 4.63 MIL/uL (4.50-5.90); RED CELL DISTRIBUTION WIDTH 15.2 % (11.5-14.5)
[2017-10-17 13:47] LABS: NEUTROPHILS % (AUTO) 90.9 % (40.0-70.0)
[2017-10-17 14:24] LABS: ALANINE AMINOTRANSFERASE 110 U/L (12-78); ALBUMIN 2.6 g/dL (3.4-5.0); ALKALINE PHOSPHATASE 103 U/L (46-116); ANION GAP 1 mmol/L (8-16); ASPARTATE AMINOTRANSFERASE 34 U/L (15-37); BILIRUBIN,TOTAL 0.2 mg/dL (0.1-1.0); CALCIUM, TOTAL 9.1 mg/dL (8.8-10.5); CARBON DIOXIDE 39 mmol/L (22-29); CHLORIDE 94 mmol/L (98-107); CREATININE 0.52 mg/dL (0.60-1.30); GLOMERULAR FILTR. RATE CALC > 60 mL/min (>60); GLUCOSE,RANDOM 241 mg/dL (70-110); POTASSIUM 4.5 mmol/L (3.5-5.1); SODIUM SERUM 134 mmol/L (136-145); TOTAL PROTEIN, SERUM 6.7 g/dL (6.4-8.2); UREA NITROGEN, BLOOD 21 mg/dL (7-18)
[2017-10-17 15:21] VITALS: BP 137/80
[2017-10-17 19:41] VITALS: BP 119/73
[2017-10-17] MEDS: RisperiDONE 1 MG TABLET PO SCH (21:54)
[2017-10-17] MEDS: OXYGEN THERAPY IH SCH (21:55)
[2017-10-18 00:05] VITALS: BP 114/59
[2017-10-18] MEDS: IPRATROPIUM BROMIDE 0.5 MG/2.5 ML NEB SOLUTION NEB SCH ×3 (02:05→13:12)
[2017-10-18] MEDS: CEFEPIME HCL 2 GM in DEXTROSE 5%-WATER 50 ML IV SCH (02:55)
[2017-10-18 04:56] VITALS: BP 137/75
[2017-10-18] MEDS: MethylPREDNISolone SOD SUCC 125 MG/2 ML VIAL IVP SCH ×2 (06:06→12:33)
[2017-10-18] MEDS: VANCOMYCIN HCL 1.25 GM in DEXTROSE 5%-WATER 250 ML IV SCH ×2 (06:06→12:33)
[2017-10-18 07:33] VITALS: BP 135/73
[2017-10-18] MEDS: OXYGEN THERAPY IH SCH (08:45)
[2017-10-18] MEDS: NITROGLYCERIN 2% (1 GM=INCH) PACKET TP SCH (08:45)
[2017-10-18] MEDS: FUROSEMIDE 40 MG/4 ML VIAL IVP SCH (08:46)
[2017-10-18] MEDS: AcetaZOLAMIDE SODIUM 500 MG VIAL IVP SCH (08:46)
[2017-10-18] MEDS: PANTOPRAZOLE SODIUM 40 MG/VIAL IVP SCH (08:46)
[2017-10-18] MEDS: ASCORBIC ACID 500 MG TABLET PO SCH (08:47)
[2017-10-18] MEDS: ATORVASTATIN CALCIUM 20 MG TABLET PO SCH (08:47)
[2017-10-18] MEDS: DOCUSATE SODIUM 100 MG CAPSULE PO SCH (08:47)
[2017-10-18] MEDS: GABAPENTIN 100 MG CAPSULE PO SCH (08:47)
[2017-10-18] MEDS: SENNA 187 MG TABLET PO SCH (08:47)
[2017-10-18] MEDS: HEPARIN SODIUM,PORCINE 5,000 UNITS/ML VIAL SQ SCH (08:47)
[2017-10-18] MEDS: LevETIRAcetam 500 MG TABLET PO SCH (08:47)
[2017-10-18] MEDS: CALCIUM CARBONATE 648 MG TABLET PO SCH (08:47)
[2017-10-18] MEDS: ASPIRIN 81 MG EC TABLET PO SCH (08:47)
[2017-10-18] MEDS: METOPROLOL TARTRATE 25 MG TABLET PO SCH (08:47)
[2017-10-18] MEDS: NYSTATIN 15 GM POWDER BOTTLE TP SCH (08:48)
[2017-10-18 09:03] LABS: EOSINOPHILS % (AUTO) 0 % (1.0-6.0); HEMATOCRIT 38.2 % (41-53); LYMPHOCYTES # (AUTO) 0.4 K/uL (1.0-4.8); LYMPHOCYTES % (AUTO) 3.1 % (22.0-44.0); MEAN CORPUSCULAR HEMOGLOBIN 26.3 pg (26.0-34.0); MEAN CORPUSCULAR HGB CONC 31.5 G/dL (31.0-37.0); MEAN CORPUSCULAR VOLUME 83 fL (80-100); MONOCYTES # (AUTO) 0.6 K/uL (0.1-1.0); MONOCYTES % (AUTO) 4.6 % (2.0-9.0); NEUTROPHILS # (AUTO) 12.5 K/uL (1.8-7.7); PLATELET COUNT (AUTO) 301 K/uL (150-450); RED BLOOD CELL COUNT(AUTO) 4.57 MIL/uL (4.50-5.90); RED CELL DISTRIBUTION WIDTH 15.4 % (11.5-14.5)
[2017-10-18 09:17] LABS: NEUTROPHILS % (AUTO) 92.3 % (40.0-70.0)
[2017-10-18 09:20] LABS: ANION GAP -1 mmol/L (8-16); CALCIUM, TOTAL 9.3 mg/dL (8.8-10.5); CHLORIDE 93 mmol/L (98-107); CREATININE 0.58 mg/dL (0.60-1.30); GLOMERULAR FILTR. RATE CALC > 60 mL/min (>60); GLUCOSE,RANDOM 160 mg/dL (70-110); POTASSIUM 4.5 mmol/L (3.5-5.1); SODIUM SERUM 134 mmol/L (136-145); UREA NITROGEN, BLOOD 24 mg/dL (7-18)
[2017-10-18 09:24] LABS: CARBON DIOXIDE 42 mmol/L (22-29)
[2017-10-18 11:06] VITALS: BP 126/96
[2017-10-18] MEDS ORDERED: ATOR20TA86 PO (15:52)
[2017-10-18] MEDS ORDERED: ACET250T27 IVP (15:53)
[2017-10-18] MEDS ORDERED: CEFE2I IV (15:54)
[2017-10-18] MEDS ORDERED: SM40I IVP (15:56)
[2017-10-18] MEDS ORDERED: METO25 PO (15:56)
[2017-10-18] MEDS ORDERED: NYST30CR9 TP (15:57)
[2017-10-18] MEDS ORDERED: VANC750V IV (15:59)
== END 2017-10-18 15:30 | DRG 871 ==
LOC: EMS 11:14 → 5S 13:16
PROVIDERS: ADMIT Internal Medicine; ATTEND Internal Medicine
DX: A41.9 Sepsis, unspecified organism (principal); J96.01 Acute respiratory failure with hypoxia; E43 Unspecified severe protein-calorie malnutrition; I50.33 Acute on chronic diastolic (congestive) heart failure; J96.02 Acute respiratory failure with hypercapnia; I27.20 Pulmonary hypertension, unspecified; J18.9 Pneumonia, unspecified organism; J90 Pleural effusion, not elsewhere classified; Z68.41 Body mass index [BMI] 40.0-44.9, adult; Q87.1 Congenital malformation syndromes predominantly associated with short stature; E87.1 Hypo-osmolality and hyponatremia; J44.0 Chronic obstructive pulmonary disease with (acute) lower respiratory infection; J44.1 Chronic obstructive pulmonary disease with (acute) exacerbation; I48.0 Paroxysmal atrial fibrillation; G43.909 Migraine, unspecified, not intractable, without status migrainosus; F32.9 Major depressive disorder, single episode, unspecified; M81.0 Age-related osteoporosis without current pathological fracture; N40.0 Benign prostatic hyperplasia without lower urinary tract symptoms; F17.290 Nicotine dependence, other tobacco product, uncomplicated; F17.210 Nicotine dependence, cigarettes, uncomplicated; G40.909 Epilepsy, unspecified, not intractable, without status epilepticus; K21.9 Gastro-esophageal reflux disease without esophagitis; G62.9 Polyneuropathy, unspecified; I25.2 Old myocardial infarction; E87.5 Hyperkalemia; G47.33 Obstructive sleep apnea (adult) (pediatric); F89 Unspecified disorder of psychological development; Z87.01 Personal history of pneumonia (recurrent); Z79.899 Other long term (current) drug therapy; Z86.11 Personal history of tuberculosis
CPT/HCPCS: 71275; 82805; 82948; 83605; 83735; 84443; 87040; 87081; 93005; 93306; 94640; 94660; 96360; 99291; C9113; J0282; J0692; J1120; J1160; J1644; J1940; J2930; J3370; J3490; J7030; J7060; P9046

== ENCOUNTER → 2020-03-01 | Outpatient (CLI) | payer MEDICAID, MEDICARE, OTHER ==
[~2020-03-01] MED LIST changes: +ACET250T27 IVP; -AMIT10TA6 PO; +ASPI-1111 PO; +ATOR20TA86 PO; +CEFE2I IV; -DOCU250C14 PO; +FURO40 PO; +GABA-1216 PO; -GABA-529 PO; -GUAR205P PO; +HEPA500018 SQ; -IBAN2.5T PO; +IPRNEB IH; -LORA10CA PO; +METO25 PO; +NYST30CR9 TP; -OMEP20 PO; +PANT40TA25 PO; -SENN-175 PO; +SENN-277 PO; +SM40I IVP; -TAMS0.4C32 GT; +VANC750V IV
== END | disposition home or self-care (01) ==
LOC: RADMN 11:06
PROVIDERS: ATTEND Radiology Body Imaging
DX: R13.12 Dysphagia, oropharyngeal phase (principal)
CPT/HCPCS: 74230; 92523